=== PATIENT | male | born 1950 | race Caucasian/White ===

== ENCOUNTER → 2016-06-01 | Outpatient (CLI) | payer MEDICARE ==
[2016-01-22 22:30] VITALS: BP 171/67
[~2016-06-01] MED LIST: CIPR500T94 PO; HYDR-2762 PO; IBUP200T5 PO; IPRA4AER INH; LISI-338 PO; LISI-376 PO; METH-37 PO; MORP15TA PO; ONDA4TAB10 PO; SIMV40TA3 PO; TAMS0.4C97 PO; insulin pump
--- NOTE | 2016-06-01 14:06 | RAD ---
Indication stent. Assess renal calculi. Single KUB was obtained and is compared to an examination almost 2 months previously. There is a right ureteral stent. There are suggested calculi along the course of the stent opposite L3-4. Bilateral renal calculi are additionally noted. The abdominal gas pattern is unremarkable. IMPRESSION: Right ureteral stent. Probable calculi along the course of the stent. Bilateral renal calculi
== END | disposition home or self-care (01) ==
LOC: DXRAD 13:37
PROVIDERS: ATTEND Urology
DX: N20.0 Calculus of kidney (principal)
CPT/HCPCS: 74000

== ENCOUNTER → 2016-09-05 | Outpatient (CLI) | payer MEDICARE ==
[2016-01-22 22:30] VITALS: BP 171/67
[~2016-09-05] MED LIST changes: +IBUP-1227 PO; -IBUP200T5 PO
[2016-09-05 15:06] LABS: BASO % 1 % (0-3); EOS # 0.1 x10^3/uL (0.0-0.7); EOS % 2 % (0-3); HEMATOCRIT 35.6 % (39.0-53.0); HEMOGLOBIN 12.3 g/dL (13.0-17.5); LYMPH # 1.4 x10^3/uL (1.0-4.8); LYMPH % 48 % (24-48); MEAN CORPUSCULAR HEMOGLOBIN 32 pg (25-35); MEAN CORPUSCULAR HGB CONC 35 g/dL (31-37); MEAN CORPUSCULAR VOLUME 92 fL (79-100); MONO # 0.2 x10^3/uL (0.0-1.1); MONO % 7 % (0-9); NEUT # 1.2 x10^3uL (1.8-7.7); NEUT % 42 % (31-73); PLATELET COUNT 179 x10^3/uL (140-400); RED BLOOD COUNT 3.88 x10^6/uL (4.30-5.70); RED CELL DISTRIBUTION WIDTH 13.8 % (11.5-14.5); WHITE BLOOD COUNT 2.9 x10^3/uL (4.0-11.0)
[2016-09-05 15:12] LABS: ALBUMIN 3.6 g/dL (3.4-5.0); CALCIUM 8.1 mg/dL (8.5-10.1); CREATININE 0.8 mg/dL (0.7-1.3); GFR 97.6; MAGNESIUM 1.9 mg/dL (1.8-2.4); PHOSPHORUS 2.9 mg/dL (2.6-4.7); POTASSIUM 4.3 mmol/L (3.5-5.1)
[2016-09-06 06:17] LABS: CREAT RD UR 130.6 mg/dL (Not Estab.); MICROALB RD UR 33.9 ug/mL (Not Estab.); UR CREATININE RD 131.4 mg/dL (Not Estab.); UR PROTEIN RD 19.8 mg/dL (Not Estab.)
[2016-09-06 07:12] LABS: CALCIUM PTH 8.5 mg/dL (8.6-10.2); CREATININE PTH 0.73 mg/dL (0.76-1.27); PTH INTACT 78 pg/mL (15-65)
== END | disposition home or self-care (01) ==
LOC: LAB 14:07
PROVIDERS: ATTEND Nurse Practitioner Family
DX: E11.21 Type 2 diabetes mellitus with diabetic nephropathy (principal); N17.9 Acute kidney failure, unspecified; Z68.29 Body mass index [BMI] 29.0-29.9, adult
CPT/HCPCS: 36415; 80069; 82043; 82570; 83735; 83970; 84156; 85027

== ENCOUNTER → 2016-09-15 | Outpatient (CLI) | payer MEDICARE ==
[2016-01-22 22:30] VITALS: BP 171/67
[2016-09-16 06:11] LABS: CREAT RD UR 108.5 mg/dL (Not Estab.); MICRO CREAT RATIO <11.1 mg/g creat (0.0-30.0); MICROALB RD UR <12.0 ug/mL (Not Estab.)
== END | disposition home or self-care (01) ==
LOC: LAB 15:38
PROVIDERS: ATTEND Internal Medicine Nephrology
DX: E11.21 Type 2 diabetes mellitus with diabetic nephropathy (principal); N20.2 Calculus of kidney with calculus of ureter; E21.3 Hyperparathyroidism, unspecified; Z68.29 Body mass index [BMI] 29.0-29.9, adult
CPT/HCPCS: 36415; 82043; 82570

== ENCOUNTER → 2017-01-25 | Outpatient (CLI) | payer MEDICARE ==
[2016-01-22 22:30] VITALS: BP 171/67
[2017-01-25 15:08] LABS: ALBUMIN 3.7 g/dL (3.4-5.0); CALCIUM 8.8 mg/dL (8.5-10.1); CREATININE 1.1 mg/dL (0.7-1.3); GFR 67.4; POTASSIUM 4.2 mmol/L (3.5-5.1)
== END | disposition home or self-care (01) ==
LOC: LAB 14:33
PROVIDERS: ATTEND Nurse Practitioner Family
DX: N17.9 Acute kidney failure, unspecified (principal); N20.2 Calculus of kidney with calculus of ureter
CPT/HCPCS: 36415; 80069

== ENCOUNTER → 2017-04-06 | Outpatient (CLI) | payer MEDICARE ==
[2016-01-22 22:30] VITALS: BP 171/67
--- NOTE | 2017-04-06 15:00 | RAD ---
Metastatic skeletal survey, 04/06/2017: History: Femur fracture, monoclonal gammopathy of uncertain significance Multiple views of the bony skeleton were obtained with the following findings delineated: 1. A PA view of the chest reveals no destructive bony lesion. The lungs are clear and the heart size is normal. 2. AP and lateral views of the cervical spine demonstrate mild to moderate scattered degenerative changes. No destructive bony lesion is seen. 3. AP and lateral views of the thoracic and lumbar spine demonstrate a mild scoliosis. There are scattered marginal spurs. There is moderate facet joint arthropathy in the lower lumbar spine. No fracture or destructive bony lesion is seen. Radiopacities overlie the renal regions are compatible with intrarenal calculi. 4. An AP view of the pelvis reveals no abnormality. 5. AP views of both femurs and lower legs demonstrate no destructive bony lesion. There is considerable mid right femoral deformity compatible with an old healed fracture. Scattered arterial calcifications are present. 6. AP views of both humeri and forearms reveal no fracture or destructive bony lesion. 7. A lateral view of the skull shows no abnormality. IMPRESSION: 1. Chronic findings as described above. 2. No destructive bony lesion or pathologic fracture is evident.
== END | disposition home or self-care (01) ==
LOC: DXRAD 11:14
PROVIDERS: ATTEND Internal Medicine Hematology & Oncology
DX: D47.2 Monoclonal gammopathy (principal); M41.86 Other forms of scoliosis, lumbar region
CPT/HCPCS: 77075

== ENCOUNTER → 2017-08-24 | Outpatient (CLI) | payer MEDICARE ==
[2016-01-22 22:30] VITALS: BP 171/67
[2017-08-24 14:22] LABS: ALBUMIN 3.9 g/dL (3.4-5.0); ALBUMIN/GLOBULIN RATIO 0.9 (1.0-1.7); CALCIUM 8.9 mg/dL (8.5-10.1); CREATININE 0.9 mg/dL (0.7-1.3); POTASSIUM 4.3 mmol/L (3.5-5.1); TOTAL BILIRUBIN 0.5 mg/dL (0.2-1.0); TOTAL PROTEIN 8.2 g/dL (6.4-8.2)
[2017-08-24 14:23] LABS: BACTERIA,URINE FEW /HPF (0-FEW); BILIRUBIN,URINE NEG (NEG); CLARITY,URINE CLEAR; COLOR,URINE YELLOW; GLUCOSE,URINE NEG (NEG); NITRITE,URINE NEG (NEG); RBC,URINE OCC /HPF (0-2); UROBILINOGEN,URINE 0.2 mg/dL (0.2 mg/dL)
[2017-08-24 14:24] LABS: SQUAMOUS EPITHELIAL CELL,UR FEW /LPF
[2017-08-24 14:29] LABS: BASO % 1 % (0-3); EOS # 0.1 x10^3/uL (0.0-0.7); EOS % 2 % (0-3); HEMOGLOBIN 13.9 g/dL (13.0-17.5); LYMPH # 1.6 x10^3/uL (1.0-4.8); LYMPH % 36 % (24-48); MEAN CORPUSCULAR HEMOGLOBIN 32 pg (25-35); MEAN CORPUSCULAR HGB CONC 35 g/dL (31-37); MEAN CORPUSCULAR VOLUME 94 fL (79-100); MONO # 0.4 x10^3/uL (0.0-1.1); MONO % 9 % (0-9); NEUT # 2.3 x10^3uL (1.8-7.7); NEUT % 53 % (31-73); PLATELET COUNT 266 x10^3/uL (140-400); RED BLOOD COUNT 4.27 x10^6/uL (4.30-5.70); RED CELL DISTRIBUTION WIDTH 12.8 % (11.5-14.5); WHITE BLOOD COUNT 4.4 x10^3/uL (4.0-11.0)
[2017-08-25 03:10] LABS: HEMOGLOBIN A1C 6.7 % (4.8-5.6)
[2017-08-26 09:09] LABS: FREE PSA/PSA RATIO 26.7 % (.); PSA FREE 0.16 ng/mL; PSA TOTAL 0.6 ng/mL (0.0-4.0)
== END | disposition home or self-care (01) ==
LOC: LAB 12:00
PROVIDERS: ATTEND Family Medicine
DX: E11.65 Type 2 diabetes mellitus with hyperglycemia (principal); E78.5 Hyperlipidemia, unspecified; J45.998 Other asthma; I13.0 Hypertensive heart and chronic kidney disease with heart failure and stage 1 through stage 4 chronic kidney disease, or unspecified chronic kidney disease; E11.40 Type 2 diabetes mellitus with diabetic neuropathy, unspecified; I50.30 Unspecified diastolic (congestive) heart failure; N18.3 Chronic kidney disease, stage 3 (moderate); I67.89 Other cerebrovascular disease
CPT/HCPCS: 36415; 80053; 81001; 83036; 84153; 84154; 84443; 85025

== ENCOUNTER → 2018-04-09 | Outpatient (CLI) | payer MEDICARE ==
[2016-01-22 22:30] VITALS: BP 171/67
[~2018-04-09] MED LIST changes: -HYDR-2762 PO; +HYDR-2765 PO
[2018-04-09 12:21] LABS: ALBUMIN 3.8 g/dL (3.4-5.0); CALCIUM 8.9 mg/dL (8.5-10.1); CREATININE 1.5 mg/dL (0.7-1.3); MAGNESIUM 1.7 mg/dL (1.8-2.4); PHOSPHORUS 3.3 mg/dL (2.6-4.7); POTASSIUM 4.6 mmol/L (3.5-5.1)
[2018-04-09 13:04] LABS: BILIRUBIN,URINE NEG (NEG); CLARITY,URINE CLEAR; COLOR,URINE YELLOW; GLUCOSE,URINE 500 mg/dL (NEG); NITRITE,URINE NEG (NEG); UROBILINOGEN,URINE 0.2 mg/dL (0.2 mg/dL)
[2018-04-09 13:05] LABS: BACTERIA,URINE 0 /HPF (0-FEW); RBC,URINE OCC /HPF (0-2); SQUAMOUS EPITHELIAL CELL,UR OCC /LPF
[2018-04-09 20:09] LABS: UR CREATININE RD 67.4 mg/dL (Not Estab.); UR PROTEIN RD 13.3 mg/dL (Not Estab.)
[2018-04-10 04:08] LABS: CALCIUM PTH 9.2 mg/dL (8.6-10.2); CREATININE PTH 1.21 mg/dL (0.76-1.27); PTH INTACT 58 pg/mL (15-65)
== END | disposition home or self-care (01) ==
LOC: LAB 11:19
PROVIDERS: ATTEND Internal Medicine Nephrology
DX: I12.9 Hypertensive chronic kidney disease with stage 1 through stage 4 chronic kidney disease, or unspecified chronic kidney disease (principal); E11.22 Type 2 diabetes mellitus with diabetic chronic kidney disease; N18.3 Chronic kidney disease, stage 3 (moderate); E11.21 Type 2 diabetes mellitus with diabetic nephropathy; E21.3 Hyperparathyroidism, unspecified; N17.9 Acute kidney failure, unspecified; E55.9 Vitamin D deficiency, unspecified
CPT/HCPCS: 36415; 80069; 81001; 82306; 82570; 83735; 83970; 84156

== ENCOUNTER → 2018-06-18 | Outpatient (CLI) | payer MEDICARE ==
[2016-01-22 22:30] VITALS: BP 171/67
--- NOTE | 2018-06-18 16:38 | RAD ---
Osseous metastatic survey Clinical indications: Monoclonal gammopathy. AP view chest: No lytic process. No acute lung infiltrate or lung mass or pleural effusion is seen. 2 view cervical spine: No lytic process or compression fracture is evident 2 view thoracic spine: No lytic process or compression fracture is evident. 2 view lumbar spine: No lytic process or compression fracture is evident. Radiopaque left renal stone is seen. There is a radiopacity of the paraspinous space at the level of the L3 left transverse process measuring 14 mm. A left ureteral stone is possible. Lateral view skull: No lytic process is seen. AP view left humerus: No lytic process is seen. AP view right humerus: No lytic process is seen. AP view left forearm: No lytic process is evident. AP view right forearm: No lytic process is evident. AP view of the right femur: Deformity of the shaft of the right femur is seen which may be due to an old healed fracture or old osteomyelitis. No lytic process is seen. AP view of the right tibia and fibula: No lytic process is seen. AP view of the left femur: No lytic process is seen. AP view of the left tibia and fibula: No lytic process is seen. AP view of the pelvis: No lytic process is seen. IMPRESSION: No lytic process is evident. Incidental note is made of a proximal left ureteral stone measuring 14 mm at the level of the left L3 transverse process. This was located within the lower pole of the left kidney on the previous study. Electronically signed by: Cholo Rodriguez MD (06/18/2018 4:36 PM) [facility]
== END | disposition home or self-care (01) ==
LOC: DXRAD 13:34
PROVIDERS: ATTEND Internal Medicine Hematology & Oncology
DX: D47.2 Monoclonal gammopathy (principal); N20.1 Calculus of ureter
CPT/HCPCS: 77075

== ENCOUNTER → 2018-06-26 | Outpatient (CLI) | payer MEDICARE ==
[2016-01-22 22:30] VITALS: BP 171/67
--- NOTE | 2018-06-26 15:32 | RAD ---
EXAM: Renal sonogram. HISTORY: Renal insufficiency. TECHNIQUE: Sonographic imaging of the kidneys and bladder was performed. COMPARISON: 01/23/2016. FINDINGS: The kidneys are normal in size. There are echogenic foci within the right kidney which may be artifactual or due to nonobstructing stones. There is moderate to severe left hydronephrosis. No solid or cystic renal lesion is seen. The left ureteral jet is only occasionally seen.. The bladder is otherwise unremarkable. IMPRESSION: 1. Moderate to severe left hydronephrosis. There is increased compared to the prior study. The left ureteral jet is only intermittently seen. 2. Echogenic foci within the right kidney, likely artifactual or due to tiny nonobstructing stones. Electronically signed by: Sharmin Garcia MD (06/26/2018 3:30 PM) [id number]
== END | disposition home or self-care (01) ==
LOC: US 13:42
PROVIDERS: ATTEND Internal Medicine Nephrology
DX: N17.9 Acute kidney failure, unspecified (principal); N13.30 Unspecified hydronephrosis
CPT/HCPCS: 76770

== ENCOUNTER → 2018-07-11 | Outpatient (CLI) | payer MEDICARE ==
[2016-01-22 22:30] VITALS: BP 171/67
--- NOTE | 2018-07-11 12:39 | RAD ---
EXAM: Abdomen and pelvis CT without intravenous contrast. HISTORY: Nephrolithiasis. TECHNIQUE: Computed tomographic images of the abdomen and pelvis were obtained without contrast. Multiplanar reformatting was performed. *One or more of the following individualized dose reduction techniques were utilized for this examination: 1. Automated exposure control. 2. Adjustment of the mA and/or kV according to patient size. 3. Use of iterative reconstruction technique. COMPARISON: 01/22/2016. FINDINGS: Evaluation of the lower thorax is unremarkable. No hepatic lesion is seen on this noncontrast exam. There is cholelithiasis. The pancreas, spleen and adrenal glands are unremarkable. There is moderate to severe left hydronephrosis and proximal hydroureter due to an obstructing proximal ureteral stone measuring 1.4 cm. There are additional nonobstructing bilateral renal stones, the largest of which on the right measures 1.1 cm of the largest of which on the left measures 0.7 cm. There is left renal atrophy with associated cortical thinning. There is a 3 mm slightly hyperdense lesion within the anterior lower pole the right kidney, possibly a tiny hemorrhagic cyst. There is a 7 mm suspected simple cyst within the posterior upper pole the right kidney. There may be a 3 mm hemorrhagic cyst along the lateral lower mid zone of the left kidney. There is slight left perinephric stranding due to aforementioned obstructive uropathy. No abnormally thickened or dilated loop of bowel is seen. There is sigmoid diverticulosis. The urinary bladder is unremarkable. There is aortobiiliac atherosclerosis. There is degenerative change involving the thoracolumbar spine. This results in foraminal and central canal stenosis at the mid and lower lumbar levels. IMPRESSION: 1. Moderate to severe left hydronephrosis and proximal hydroureter due to an obstructing 1.4 cm stone within the proximal ureter. There are additional nonobstructing bilateral renal stones, described above. 2. Small right renal cyst and tiny solid hyperdense lesions within both kidneys, the appearance of which favors hemorrhagic cysts. These are likely too small to characterize sonographically. 3. Sigmoid diverticulosis. 4. Cholelithiasis. Electronically signed by: Sharmin Garcia MD (07/11/2018 12:36 PM) [place] [id number]
== END | disposition home or self-care (01) ==
LOC: CT 09:15
PROVIDERS: ATTEND Family Medicine
DX: N13.1 Hydronephrosis with ureteral stricture, not elsewhere classified (principal); N20.0 Calculus of kidney; N13.4 Hydroureter; K80.20 Calculus of gallbladder without cholecystitis without obstruction; N20.1 Calculus of ureter; N26.1 Atrophy of kidney (terminal); N13.9 Obstructive and reflux uropathy, unspecified; K57.30 Diverticulosis of large intestine without perforation or abscess without bleeding; M47.815 Spondylosis without myelopathy or radiculopathy, thoracolumbar region; M48.061 Spinal stenosis, lumbar region without neurogenic claudication; E11.9 Type 2 diabetes mellitus without complications; N28.1 Cyst of kidney, acquired; I70.0 Atherosclerosis of aorta
CPT/HCPCS: 74176

== ENCOUNTER → 2018-08-14 | Outpatient (CLI) | payer MEDICARE ==
[2016-01-22 22:30] VITALS: BP 171/67
--- NOTE | 2018-08-14 18:34 | RAD ---
EXAM: Head and maxillofacial bone CT without contrast. HISTORY: Fall. TECHNIQUE: Computed tomographic images of the head and maxillofacial bones were obtained without contrast. *One or more of the following individualized dose reduction techniques were utilized for this examination: 1. Automated exposure control. 2. Adjustment of the mA and/or kV according to patient size. 3. Use of iterative reconstruction technique. COMPARISON: None. FINDINGS: There is a large region of encephalomalacia within the inferior left frontal lobe and temporal lobe, likely due to chronic infarction or the sequela of remote trauma. There is a rounded region of parenchymal density within the posterior left temporal lobe likely due to volume averaging of normal brain parenchyma with surrounding encephalomalacia. No convincing acute or subacute hemorrhage is seen. There are areas of decreased attenuation within the cerebral white matter, nonspecific and likely related to chronic small vessel disease. There is cerebral volume loss. No suspicious calvarial lesion is seen. The mastoid air cells are clear. There is no paranasal sinus opacification or air-fluid level. The ostiomeatal units are patent. There is a right angela bullosa. There is leftward nasal septal deviation. There is a small inferior left frontal scalp and periorbital soft tissue hematoma. There is a heterogeneous mass with internal cystic degeneration or necrosis within the right parotid gland measuring 2.4 cm. There is calcified atherosclerotic plaque within the carotid bifurcation. There is incidental torus mandibularis. There is degenerative facet arthropathy involving the visualized cervical spine. This is associated with left foraminal stenosis at C3-C4 and right foraminal stenosis at C4-C5 and bilateral foraminal stenosis at C5-C6. IMPRESSION: 1. Extensive encephalomalacia within the inferior left frontal and anterior left temporal lobes, likely due to chronic infarction or the sequela of remote trauma. 2. Left inferior frontal scalp and periorbital soft tissue hematoma. 3. 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 This can be further assessed with a sonogram. This lesion is amenable to sonographic guided tissue sampling. 4. Multilevel degenerative change involving the cervical spine. Electronically signed by: Sharmin Garcia MD (08/14/2018 6:32 PM) [facility]
== END | disposition home or self-care (01) ==
LOC: CT 17:52
PROVIDERS: ATTEND Family Medicine
DX: S00.03XA Contusion of scalp, initial encounter (principal); G93.89 Other specified disorders of brain; M47.812 Spondylosis without myelopathy or radiculopathy, cervical region; M48.02 Spinal stenosis, cervical region; M12.88 Other specific arthropathies, not elsewhere classified, other specified site; J34.2 Deviated nasal septum; I70.8 Atherosclerosis of other arteries; M27.0 Developmental disorders of jaws; W01.198A Fall on same level from slipping, tripping and stumbling with subsequent striking against other object, initial encounter; Y93.89 Activity, other specified; Y92.89 Other specified places as the place of occurrence of the external cause; Y99.8 Other external cause status
CPT/HCPCS: 70450; 70486

== ENCOUNTER → 2018-08-28 | Outpatient (CLI) | payer MEDICARE ==
[2016-01-22 22:30] VITALS: BP 171/67
[2018-08-28 15:10] LABS: ALBUMIN 3.7 g/dL (3.4-5.0); CREATININE 1.5 mg/dL (0.7-1.3); MAGNESIUM 1.6 mg/dL (1.8-2.4); PHOSPHORUS 3.7 mg/dL (2.6-4.7)
[2018-08-28 15:25] LABS: BACTERIA,URINE FEW /HPF (0-FEW); BILIRUBIN,URINE NEG (NEG); CLARITY,URINE CLEAR; COLOR,URINE YELLOW; GLUCOSE,URINE NEG (NEG); GRANULAR CASTS,URINE OCC /HPF; HYALINE CASTS, URINE FEW /HPF; NITRITE,URINE NEG (NEG); RBC,URINE RARE /HPF (0-2); SQUAMOUS EPITHELIAL CELL,UR FEW /LPF; UROBILINOGEN,URINE 0.2 mg/dL (0.2 mg/dL)
== END | disposition home or self-care (01) ==
LOC: LAB 14:09
PROVIDERS: ATTEND Internal Medicine Nephrology
DX: E11.21 Type 2 diabetes mellitus with diabetic nephropathy (principal); E11.22 Type 2 diabetes mellitus with diabetic chronic kidney disease; I12.9 Hypertensive chronic kidney disease with stage 1 through stage 4 chronic kidney disease, or unspecified chronic kidney disease; N18.9 Chronic kidney disease, unspecified; N17.9 Acute kidney failure, unspecified; N13.2 Hydronephrosis with renal and ureteral calculous obstruction; D64.9 Anemia, unspecified; Z68.30 Body mass index [BMI] 30.0-30.9, adult
CPT/HCPCS: 36415; 80069; 81001; 83735

== ENCOUNTER → 2018-12-03 | Outpatient (CLI) | payer MEDICARE ==
[2016-01-22 22:30] VITALS: BP 171/67
[~2018-12-03] MED LIST changes: -IBUP-1227 PO; +IBUP-1673 PO
[2018-12-03 15:43] LABS: HEMOGLOBIN 12.5 g/dL (13.0-17.5)
[2018-12-03 16:02] LABS: ALBUMIN 3.8 g/dL (3.4-5.0); CALCIUM 8.5 mg/dL (8.5-10.1); CREATININE 1.6 mg/dL (0.7-1.3); GFR 43.5; MAGNESIUM 1.9 mg/dL (1.8-2.4); PHOSPHORUS 2.7 mg/dL (2.6-4.7); POTASSIUM 4.5 mmol/L (3.5-5.1); URIC ACID 7.2 mg/dL (3.5-7.2)
[2018-12-03 18:35] LABS: BACTERIA,URINE 0 /HPF (0-FEW); BILIRUBIN,URINE NEG (NEG); CLARITY,URINE CLEAR; COLOR,URINE YELLOW; GLUCOSE,URINE NEG (NEG); NITRITE,URINE NEG (NEG); RBC,URINE 0 /HPF (0-2); UROBILINOGEN,URINE 0.2 mg/dL (0.2 mg/dL); WBC,URINE 0 /HPF (0-4)
[2018-12-04 00:06] LABS: MICRO CREAT RATIO 18.5 mg/g creat (0.0-30.0); MICROALB RD UR 24.4 ug/mL (Not Estab.)
[2018-12-04 02:20] LABS: CALCIUM PTH 8.7 mg/dL (8.6-10.2); CREATININE PTH 1.45 mg/dL (0.76-1.27); PTH INTACT 98 pg/mL (15-65)
== END | disposition home or self-care (01) ==
LOC: LAB 14:56
PROVIDERS: ATTEND Nurse Practitioner Family
DX: N17.9 Acute kidney failure, unspecified (principal); E11.21 Type 2 diabetes mellitus with diabetic nephropathy; E11.22 Type 2 diabetes mellitus with diabetic chronic kidney disease; I12.9 Hypertensive chronic kidney disease with stage 1 through stage 4 chronic kidney disease, or unspecified chronic kidney disease; N18.9 Chronic kidney disease, unspecified; N20.0 Calculus of kidney; N13.2 Hydronephrosis with renal and ureteral calculous obstruction; D64.9 Anemia, unspecified; Z68.29 Body mass index [BMI] 29.0-29.9, adult
CPT/HCPCS: 36415; 80069; 81001; 82043; 82570; 83735; 83970; 84550; 85014; 85018

== ENCOUNTER → 2019-05-01 | Outpatient (CLI) | payer MEDICARE ==
[2016-01-22 22:30] VITALS: BP 171/67
[~2019-05-01] MED LIST changes: +SIMV40TA18 PO; -SIMV40TA3 PO
[2019-05-01 16:41] LABS: HEMATOCRIT 37.9 % (39.0-53.0); HEMOGLOBIN 12.8 g/dL (13.0-17.5)
[2019-05-01 16:58] LABS: CALCIUM 9.3 mg/dL (8.5-10.1); CREATININE 1.4 mg/dL (0.7-1.3); GFR 50.7; MAGNESIUM 1.9 mg/dL (1.8-2.4); PHOSPHORUS 3.4 mg/dL (2.6-4.7); POTASSIUM 4.4 mmol/L (3.5-5.1); URIC ACID 6.7 mg/dL (3.5-7.2)
[2019-05-02 06:07] LABS: CREATININE PTH 1.48 mg/dL (0.76-1.27); PTH INTACT 39 pg/mL (15-65)
[2019-05-02 14:54] LABS: CREATININE,RANDOM URINE 111.6 mg/dL (Not Establ.)
== END | disposition home or self-care (01) ==
LOC: LAB 15:58
PROVIDERS: ATTEND Family Medicine
DX: N20.0 Calculus of kidney (principal); E11.21 Type 2 diabetes mellitus with diabetic nephropathy; I12.9 Hypertensive chronic kidney disease with stage 1 through stage 4 chronic kidney disease, or unspecified chronic kidney disease; N18.3 Chronic kidney disease, stage 3 (moderate); N17.9 Acute kidney failure, unspecified; D64.9 Anemia, unspecified; N28.1 Cyst of kidney, acquired
CPT/HCPCS: 36415; 80069; 82570; 83735; 83970; 84156; 84550; 85014; 85018

== ENCOUNTER → 2019-09-05 | Outpatient (CLI) | payer MEDICARE ==
[2016-01-22 22:30] VITALS: BP 171/67
[2019-09-05 15:35] LABS: HEMATOCRIT 36.4 % (39.0-53.0); HEMOGLOBIN 12.5 g/dL (13.0-17.5)
[2019-09-05 15:48] LABS: ALBUMIN 3.8 g/dL (3.4-5.0); CALCIUM 8.9 mg/dL (8.5-10.1); CREATININE 1.9 mg/dL (0.7-1.3); GFR 35.6; PHOSPHORUS 3.3 mg/dL (2.6-4.7); POTASSIUM 4.6 mmol/L (3.5-5.1)
[2019-09-05 16:22] LABS: BACTERIA,URINE 0 /HPF (0-FEW); BILIRUBIN,URINE NEG (NEG); CLARITY,URINE CLEAR; COLOR,URINE YELLOW; GLUCOSE,URINE 250 mg/dL (NEG); NITRITE,URINE NEG (NEG); RBC,URINE OCC /HPF (0-2); SQUAMOUS EPITHELIAL CELL,UR OCC /LPF; UROBILINOGEN,URINE 0.2 mg/dL (0.2 mg/dL); WBC,URINE OCC /HPF (0-4)
[2019-09-06 02:06] LABS: MICROALB RD UR 33.5 ug/mL (Not Estab.)
[2019-09-06 09:08] LABS: CALCIUM PTH 9.3 mg/dL (8.6-10.2); PTH INTACT 55 pg/mL (15-65)
== END ==
LOC: LAB 14:51
PROVIDERS: ATTEND Internal Medicine Nephrology
DX: N13.2 Hydronephrosis with renal and ureteral calculous obstruction (principal); E11.21 Type 2 diabetes mellitus with diabetic nephropathy; I12.9 Hypertensive chronic kidney disease with stage 1 through stage 4 chronic kidney disease, or unspecified chronic kidney disease; N17.9 Acute kidney failure, unspecified; N25.81 Secondary hyperparathyroidism of renal origin; N18.3 Chronic kidney disease, stage 3 (moderate); D64.9 Anemia, unspecified; D47.2 Monoclonal gammopathy; Z79.4 Long term (current) use of insulin; Z68.31 Body mass index [BMI] 31.0-31.9, adult
CPT/HCPCS: 80069; 81001; 82043; 82570; 83970; 85014; 85018

== ENCOUNTER → 2020-07-02 | Outpatient (CLI) | payer MEDICARE ==
[2016-01-22 22:30] VITALS: BP 171/67
[~2020-07-02] MED LIST changes: -LISI-338 PO; +LISI-517 PO
[2020-07-02 14:57] LABS: HEMATOCRIT 35.6 % (39.0-53.0); HEMOGLOBIN 12.3 g/dL (13.0-17.5)
[2020-07-02 15:39] LABS: CREATININE 1.7 mg/dL (0.7-1.3); GFR 40.4; MAGNESIUM 1.8 mg/dL (1.8-2.4); PHOSPHORUS 3.4 mg/dL (2.6-4.7); POTASSIUM 4.8 mmol/L (3.5-5.1); URIC ACID 6.3 mg/dL (3.5-7.2)
[2020-07-02 16:11] LABS: CLARITY,URINE CLEAR; COLOR,URINE YELLOW
[2020-07-02 16:12] LABS: BILIRUBIN,URINE NEG (NEG); GLUCOSE,URINE 500 mg/dL (NEG); NITRITE,URINE NEG (NEG); UROBILINOGEN,URINE 0.2 mg/dL (0.2 mg/dL)
[2020-07-02 16:13] LABS: RBC,URINE 0 /HPF (0-2); WBC,URINE 0 /HPF (0-4)
[2020-07-02 16:14] LABS: BACTERIA,URINE 0 /HPF (0-FEW)
[2020-07-03 13:11] LABS: CALCIUM PTH 9.3 mg/dL (8.6-10.2); CREATININE PTH 1.51 mg/dL (0.76-1.27); PTH INTACT 52 pg/mL (15-65)
== END ==
LOC: LAB 14:20
PROVIDERS: ATTEND Internal Medicine Nephrology
DX: N13.2 Hydronephrosis with renal and ureteral calculous obstruction (principal); E11.21 Type 2 diabetes mellitus with diabetic nephropathy; I12.9 Hypertensive chronic kidney disease with stage 1 through stage 4 chronic kidney disease, or unspecified chronic kidney disease; N18.31 Chronic kidney disease, stage 3a; D64.9 Anemia, unspecified; N25.81 Secondary hyperparathyroidism of renal origin; Z79.4 Long term (current) use of insulin; D47.2 Monoclonal gammopathy; K76.0 Fatty (change of) liver, not elsewhere classified; Z68.30 Body mass index [BMI] 30.0-30.9, adult
CPT/HCPCS: 36415; 80069; 81001; 82306; 82607; 82728; 82746; 83540; 83550; 83735; 83970; 84550; 85014; 85018

== ENCOUNTER → 2020-12-30 | Outpatient (CLI) | payer MEDICARE ==
[2016-01-22 22:30] VITALS: BP 171/67
[~2020-12-30] MED LIST changes: -LISI-517 PO; +LISI5TAB15 PO
[2020-12-30 14:46] LABS: HEMATOCRIT 34.8 % (39.0-53.0); HEMOGLOBIN 11.9 g/dL (13.0-17.5)
[2020-12-30 14:56] LABS: ALBUMIN 3.9 g/dL (3.4-5.0); CALCIUM 9.2 mg/dL (8.5-10.1); CREATININE 1.6 mg/dL (0.7-1.3); GFR 43.2; MAGNESIUM 1.9 mg/dL (1.8-2.4); PHOSPHORUS 3.8 mg/dL (2.6-4.7); POTASSIUM 4.8 mmol/L (3.5-5.1); URIC ACID 6.7 mg/dL (3.5-7.2)
[2020-12-30 15:50] LABS: BACTERIA,URINE 0 /HPF (0-FEW); BILIRUBIN,URINE NEG (NEG); CLARITY,URINE CLEAR; COLOR,URINE YELLOW; GLUCOSE,URINE 250 mg/dL (NEG); NITRITE,URINE NEG (NEG); RBC,URINE 0 /HPF (0-2); UROBILINOGEN,URINE 0.2 mg/dL (0.2 mg/dL); WBC,URINE 0 /HPF (0-4)
[2020-12-31 13:17] LABS: MICROALB RD UR 16.8 ug/mL (Not Estab.)
[2020-12-31 15:13] LABS: CALCIUM PTH 9.5 mg/dL (8.6-10.2); CREATININE PTH 1.52 mg/dL (0.76-1.27); PTH INTACT 44 pg/mL (15-65)
[2020-12-31 15:26] LABS: CREATININE,RANDOM URINE 158.4 mg/dL (Not Establ.)
== END ==
LOC: LAB 13:56
PROVIDERS: ATTEND Nurse Practitioner Family
DX: I12.9 Hypertensive chronic kidney disease with stage 1 through stage 4 chronic kidney disease, or unspecified chronic kidney disease (principal); E11.22 Type 2 diabetes mellitus with diabetic chronic kidney disease; N18.32 Chronic kidney disease, stage 3b; N13.2 Hydronephrosis with renal and ureteral calculous obstruction; D64.9 Anemia, unspecified; N25.81 Secondary hyperparathyroidism of renal origin; D47.2 Monoclonal gammopathy; K76.0 Fatty (change of) liver, not elsewhere classified; Z79.4 Long term (current) use of insulin; Z68.30 Body mass index [BMI] 30.0-30.9, adult
CPT/HCPCS: 80069; 81001; 82043; 82570; 83735; 83970; 84156; 84550; 85014; 85018

== ENCOUNTER → 2021-02-11 | Outpatient (CLI) | payer MEDICARE ==
[2016-01-22 22:30] VITALS: BP 171/67
[~2021-02-11] MED LIST changes: +MORP-62 PO; -MORP15TA PO
[2021-02-11 16:58] LABS: BASO % 0 % (0-3); EOS # 0.1 x10^3/uL (0.0-0.7); EOS % 2 % (0-3); HEMATOCRIT 34.6 % (39.0-53.0); HEMOGLOBIN 11.8 g/dL (13.0-17.5); LYMPH # 1.2 x10^3/uL (1.0-4.8); LYMPH % 36 % (24-48); MEAN CORPUSCULAR HEMOGLOBIN 34 pg (25-35); MEAN CORPUSCULAR HGB CONC 34 g/dL (31-37); MEAN CORPUSCULAR VOLUME 99 fL (79-100); MONO # 0.3 x10^3/uL (0.0-1.1); MONO % 9 % (0-9); NEUT # 1.8 x10^3uL (1.8-7.7); NEUT % 53 % (31-73); PLATELET COUNT 203 x10^3/uL (140-400); RED BLOOD COUNT 3.51 x10^6/uL (4.30-5.70); RED CELL DISTRIBUTION WIDTH 13.5 % (11.5-14.5); WHITE BLOOD COUNT 3.4 x10^3/uL (4.0-11.0)
[2021-02-12 12:08] LABS: KAPPA FREE 44.7 mg/L (3.3-19.4); KAPPA LAMBDA RATIO 3.55 (0.26-1.65); LAMBDA FREE 12.6 mg/L (5.7-26.3)
[2021-02-15 16:14] LABS: COMMENT IMMUNOFIX SERUM Note: (.); IMMUNOGLOBULIN A 43 mg/dL (61-437); IMMUNOGLOBULIN G 3086 mg/dL (603-1613); IMMUNOGLOBULIN M 7 mg/dL (20-172)
[2021-02-15 18:20] LABS: ALBUM 4.2 g/dL (2.9-4.4); ALPHA 1 0.2 g/dL (0.0-0.4); ALPHA 2 0.7 g/dL (0.4-1.0); BETA 0.9 g/dL (0.7-1.3); GAMMA 2.4 g/dL (0.4-1.8); PROTEIN TOTAL 8.4 g/dL (6.0-8.5)
== END ==
LOC: LAB 15:50
PROVIDERS: ATTEND Internal Medicine Hematology & Oncology
DX: D47.2 Monoclonal gammopathy (principal)
CPT/HCPCS: 36415; 83520; 84165; 85025; 86334

== ENCOUNTER → 2021-06-28 | Outpatient (CLI) | payer MEDICARE ==
[2016-01-22 22:30] VITALS: BP 171/67
[2021-06-28 14:32] LABS: HEMATOCRIT 35.3 % (39.0-53.0); HEMOGLOBIN 11.9 g/dL (13.0-17.5)
[2021-06-28 14:37] LABS: ALBUMIN 3.8 g/dL (3.4-5.0); CALCIUM 8.8 mg/dL (8.5-10.1); CREATININE 1.4 mg/dL (0.7-1.3); GFR 50.4; PHOSPHORUS 3.7 mg/dL (2.6-4.7); POTASSIUM 4.7 mmol/L (3.5-5.1)
[2021-06-28 14:48] LABS: CLARITY,URINE CLEAR; COLOR,URINE YELLOW; GLUCOSE,URINE 100 mg/dL (NEG)
[2021-06-28 14:49] LABS: BACTERIA,URINE 0 /HPF (0-FEW); NITRITE,URINE NEG (NEG); RBC,URINE 0 /HPF (0-2); UROBILINOGEN,URINE 0.2 mg/dL (0.2 mg/dL); WBC,URINE 0 /HPF (0-4)
[2021-06-29 15:57] LABS: CREATININE,RANDOM URINE 106.6 mg/dL (Not Establ.)
== END ==
LOC: LAB 13:37
PROVIDERS: ATTEND Internal Medicine Nephrology
DX: I12.9 Hypertensive chronic kidney disease with stage 1 through stage 4 chronic kidney disease, or unspecified chronic kidney disease (principal); E10.22 Type 1 diabetes mellitus with diabetic chronic kidney disease; N18.31 Chronic kidney disease, stage 3a; E10.21 Type 1 diabetes mellitus with diabetic nephropathy; N13.2 Hydronephrosis with renal and ureteral calculous obstruction; D47.2 Monoclonal gammopathy; D64.9 Anemia, unspecified; K76.0 Fatty (change of) liver, not elsewhere classified; Z68.29 Body mass index [BMI] 29.0-29.9, adult; Z79.4 Long term (current) use of insulin
CPT/HCPCS: 80069; 81001; 82043; 82570; 82607; 82728; 82746; 83540; 83550; 84156; 85014; 85018